=== PATIENT | male | born 1960 | race Caucasian/White ===

== ENCOUNTER 2019-01-08 07:30 | Day surgery (SDC) | payer OTHER ==
[2019-01-05 15:26] LABS: BASOPHILS % (AUTO) 0.6 % (0.0-5.0); EOSINOPHILS % (AUTO) 5.6 % (0.0-8.0); HEMATOCRIT 39.6 % (42-54); LYMPHOCYTES % (AUTO) 17.3 % (21.0-51.0); MEAN CORPUSCULAR HGB CONC 34.6 g/dL (32.0-36.0); MEAN CORPUSCULAR VOLUME 92.5 fL (79-99); MONOCYTES % (AUTO) 10.8 % (3.0-13.0); NEUTROPHILS % (AUTO) 65.7 % (40.0-77.0); PLATELET COUNT (AUTO) 208 K/uL (130-400); RED BLOOD CELL COUNT(AUTO) 4.29 MIL/uL (4.50-6.20); WHITE BLOOD COUNT (AUTO) 8.8 K/uL (4.8-10.8)
[2019-01-05 15:30] VITALS: BP 149/72
[2019-01-08] VITALS (16 sets, daily range): BP systolic 101–129; BP diastolic 52–76
[~2019-01-08] VITALS: Ht 170.2 cm; Wt 96.3 kg
[~2019-01-08 07:30] MED LIST: ALLO300T2 PO; LACTATED RINGERS 1000ML 1,000 ML IV SCH; LISI10TA7 PO; PITA4TAB2 PO
[2019-01-08] MEDS ORDERED: BUPIVACAINE/PF 0.25% 30ML VIAL IJ ONE (08:14)
[2019-01-08] MEDS ORDERED: ONDANSETRON HCL 4 MG/2 ML VIAL ONE (08:48)
[2019-01-08] MEDS ORDERED: FENTANYL CITRATE PF 50 MCG/1 ML 2ML VIAL ONE (08:48)
[2019-01-08] MEDS ORDERED: GLYCOPYRROLATE 1 MG/5 ML SYRINGE ONE (08:48)
[2019-01-08] MEDS ORDERED: LIDOCAINE PF 2% 5ML ABBOJECT ONE (08:48)
[2019-01-08] MEDS ORDERED: MIDAZOLAM HCL 1 MG/ML 2ML VIAL ONE (08:48)
[2019-01-08] MEDS ORDERED: NEOSTIGMINE 5MG/5ML SYR IV ONE (08:48)
[2019-01-08] MEDS ORDERED: PROPOFOL 10 MG/ML 20ML VIAL IV ONE (08:48)
[2019-01-08] MEDS ORDERED: SUCCINYLCHOLINE 200MG/10ML SYR ONE (08:48)
[2019-01-08] MEDS ORDERED: DEXAMETHASONE SOD PHOSPHATE 10MG/ML 1ML VIAL ONE (08:48)
[2019-01-08] MEDS ORDERED: ROCURONIUM 10MG/1ML SYR 10 MG/ML ML ONE ×2 (08:49→08:50)
[2019-01-08] MEDS ORDERED: MEPERIDINE-PF 25 MG/ML SYG ONE (09:51)
== END 2019-01-08 11:50 | disposition home or self-care (01) ==
LOC: DAH 07:30
PROVIDERS: ATTEND Surgery
DX: K42.9 Umbilical hernia without obstruction or gangrene (principal); I10 Essential (primary) hypertension; M10.9 Gout, unspecified; Z91.013 Allergy to seafood
CPT/HCPCS: 36415; 49585; 85025; A4215; A4221; A4222; A4223; A4450; A4452; A4606; A4663; A6260; C1781; J0330; J1100; J2001; J2175; J2250; J2405; J2704; J2710; J3010; J3490 ×2; J7120 ×2